=== PATIENT | female | born 1975 | race Caucasian/White ===

== ENCOUNTER 2022-03-12 21:13 | Emergency (ER) | payer MEDICAID ==
[~2022-03-12] VITALS: Ht 157.5 cm; Wt 73.0 kg
[2022-03-12 22:01] VITALS: BP 132/80
[2022-03-12] MEDS ORDERED: HYDR25SU33 RC (22:41)
== END 2022-03-12 23:09 | disposition home or self-care (01) ==
LOC: ER 21:16
DX: K64.4 Residual hemorrhoidal skin tags (principal)

== ENCOUNTER 2022-04-23 19:29 | Emergency (ER) | payer MEDICAID ==
[~2022-04-23] VITALS: Ht 157.5 cm; Wt 69.4 kg
[~2022-04-23 19:29] MED LIST: HYDR25SU33 RC
--- NOTE | 2022-04-23 20:06 | NUR ---
PT BIBSELF C/O LOWER ABD PAIN AND LEFT LOWER ABD PAIN THAT RADIATES TO LEFT THIGH X 1 WEEK. PT ALSO REPORTS FEELING A MASS IN HER VAGINA WHEN SHE WIPES HERSELF. PT DENIES TAKING MEDICATIONS FOR PAIN. PT AAOX4 BREATHING EVENLY AND UNLABORED.
[2022-04-23] MEDS ORDERED: KETOROLAC TROMETHAMINE INJ 30 MG/ML VIAL IM ONE (20:30)
--- NOTE | 2022-04-23 20:32 | NUR ---
US TECH AT PT'S BEDSIDE
--- NOTE | 2022-04-23 20:34 | NUR ---
PROVIDED PT WITH URINE CUP; AWAITING FOR URINE SAMPLE.
[2022-04-23 20:35] LABS: BASOPHILS # (AUTO) 0.1 K/uL (0.0-0.2); BASOPHILS % (AUTO) 0.6 % (0.0-2.0); EOSINOPHILS % (AUTO) 0.3 % (0.0-6.0); HEMATOCRIT 23 % (33-45); HEMOGLOBIN 7.5 g/dL (11.5-14.8); LYMPHOCYTES # (AUTO) 1.9 K/uL (0.8-4.8); LYMPHOCYTES % (AUTO) 18.7 % (20.0-44.0); MEAN CORPUSCULAR HGB CONC 32 g/dl (31.0-36.0); MEAN CORPUSCULAR VOLUME 56 fL (82-100); MONOCYTES % (AUTO) 10.3 % (2.0-12.0); NEUTROPHILS % (AUTO) 70.1 % (43.0-81.0); PLATELET COUNT (AUTO) 338 K/uL (150-450); RED BLOOD CELL COUNT(AUTO) 4.11 MIL/uL (4.0-5.2); WHITE BLOOD COUNT (AUTO) 9.9 K/uL (4.3-11.0)
[2022-04-23] MEDS ORDERED: KETOROLAC TROMETHAMINE INJ 30 MG/ML VIAL ONE (20:39)
[2022-04-23 20:53] LABS: CREATININE 0.8 mg/dL (0.6-1.3); POTASSIUM 4.2 mmol/L (3.5-5.1)
--- NOTE | 2022-04-23 20:58 | NUR ---
URINE COLLECTED AND SENT TO LAB
[2022-04-23 21:43] LABS: BILIRUBIN,URINE NEGATIVE (NEGATIVE); COLOR,URINE YELLOW (YELLOW); LEUKOCYTE ESTERASE ,URINE 2+ (NEGATIVE); NITRITE, URINE NEGATIVE (NEGATIVE); PH,URINE 5.5 (5.0-8.0); PROTEIN,URINE NEGATIVE (NEGATIVE); UGLUCOSE NEGATIVE (NEGATIVE); UROBILINOGEN,URINE 0.2 EU/dL (0.2)
[2022-04-23 21:48] LABS: BAND % (MANUAL) 1 % (0.0-5.0); LYMPHOCYTES % (MANUAL) 18 % (16-48); MONOCYTES % (MANUAL) 7 % (0-11.0); NEUTROPHILS % (MANUAL) 74 (42-76)
[2022-04-23 22:10] LABS: BACTERIA,URINE Moderate /HPF (None Seen); SQUAMOUS EPITHELIAL CELL,UR Few /HPF (None Seen)
[2022-04-23] MEDS ORDERED: IBUP-1953 PO (22:41)
[2022-04-23] MEDS ORDERED: FERR325T23 PO (22:41)
[2022-04-23] MEDS ORDERED: CEPH500C2 PO (22:41)
--- NOTE | 2022-04-23 22:47 | NUR ---
Patient discharged to home in stable condition. Written and verbal after care instructions given. Patient verbalizes understanding of instruction. Pt ambulatory with a steady gait
[2022-04-23 22:57] VITALS: BP 106/69
== END 2022-04-23 22:47 | disposition home or self-care (01) ==
LOC: ER 19:32
DX: N93.8 Other specified abnormal uterine and vaginal bleeding (principal); D64.9 Anemia, unspecified; D25.9 Leiomyoma of uterus, unspecified; N39.0 Urinary tract infection, site not specified; Z79.899 Other long term (current) drug therapy
CPT/HCPCS: 99285; 76856; 96372; 85025; 80048; 87086; 84703; 81001; 36415; 82962; 85007; J1885

== ENCOUNTER 2022-06-05 08:31 | Inpatient (IN) | payer MEDICAID ==
[~2022-06-05] VITALS: Ht 160 cm; Wt 71.7 kg
[~2022-06-05 08:31] MED LIST changes: +CEPH500C2 PO; +FERR325T23 PO; +IBUP-1953 PO
--- NOTE | 2022-06-05 08:40 | NUR ---
TO ER BED 16. BIB C/O LOWER ABDOMINAL PAIN AND VAGINAL BLEEDING AND CLOTS SINCE YESTERDAY. PT HAS HX OF ANEMIA AND ALSO DIAGNOSED WITH FIBROIDS LAST MONITOR. STATED THAT SHE HAS BEEN FEELING WEAK SINCE YESTERDAY. WARM BLANKET PROVIDED FOR COMFORT. ATTACHED TO MONITOR, HR ELEVATED, AWARE.
--- NOTE | 2022-06-05 08:41 | NUR ---
PT UNABLE TO PROVIDE URINE SAMPLE AT THIS TIME, PROVIDED WITH SAMPLE CUP.
--- NOTE | 2022-06-05 08:43 | NUR ---
DR MITCHELL AT BEDSIDE FOR EVAL
--- NOTE | 2022-06-05 08:44 | NUR ---
IV ESTABLISHED R AC 20G. LABS DRAWN AND COLLECTED AT BEDSIDE.
[2022-06-05 09:07] LABS: BASOPHILS # (AUTO) 0.1 K/uL (0.0-0.2); BASOPHILS % (AUTO) 0.3 % (0.0-2.0); EOSINOPHILS % (AUTO) 0.1 % (0.0-6.0); HEMATOCRIT 23 % (33-45); LYMPHOCYTES # (AUTO) 1.7 K/uL (0.8-4.8); LYMPHOCYTES % (AUTO) 9.9 % (20.0-44.0); MEAN CORPUSCULAR HGB CONC 29 g/dl (31.0-36.0); MEAN CORPUSCULAR VOLUME 68 fL (82-100); MONOCYTES # (AUTO) 0.5 K/uL (0.1-1.30); MONOCYTES % (AUTO) 2.9 % (2.0-12.0); NEUTROPHILS # (AUTO) 14.7 K/uL (1.8-8.9); NEUTROPHILS % (AUTO) 86.8 % (43.0-81.0); PLATELET COUNT (AUTO) 479 K/uL (150-450); RED BLOOD CELL COUNT(AUTO) 3.42 MIL/uL (4.0-5.2); WHITE BLOOD COUNT (AUTO) 16.9 K/uL (4.3-11.0)
[2022-06-05 09:09] LABS: HEMOGLOBIN 6.7 g/dL (11.5-14.8)
--- NOTE | 2022-06-05 09:15 | NUR ---
PAGED DR. FERRER
[2022-06-05] MEDS ORDERED: MEGESTROL ACETATE 40 MG TABLET PO STA (09:17)
[2022-06-05] MEDS ORDERED: MEGESTROL ACETATE 40 MG TABLET ONE (09:21)
--- NOTE | 2022-06-05 09:28 | NUR ---
BLOOD CONSENT SIGNED AND PLACE IN PT'S CHART
[2022-06-05] MEDS ORDERED: IV NS 0.9% 1,000 ML IV ONE (09:30)
[2022-06-05 09:38] LABS: ALBUMIN 2.9 g/dL (3.4-5.0); BILIRUBIN,DIRECT 0.1 mg/dL (0.0-0.2); BILIRUBIN,TOTAL 0.2 mg/dL (0.2-1.0); CALCIUM, SERUM 9.5 mg/dL (8.5-10.1); CREATININE 1.4 mg/dL (0.6-1.3); POTASSIUM 4.3 mmol/L (3.5-5.1)
[2022-06-05 09:44] LABS: BILIRUBIN,URINE NEGATIVE (NEGATIVE); COLOR,URINE RED (YELLOW); LEUKOCYTE ESTERASE ,URINE TRACE (NEGATIVE); NITRITE, URINE NEGATIVE (NEGATIVE); PH,URINE 7.5 (5.0-8.0); PROTEIN,URINE 3+ mg/dl (NEGATIVE); UGLUCOSE TRACE mg/dL (NEGATIVE); UROBILINOGEN,URINE 0.2 EU/dL (0.2)
--- NOTE | 2022-06-05 09:48 | NUR ---
COVID TEST COLLECTED AND SENT
--- NOTE | 2022-06-05 10:03 | NUR ---
BED GIVEN 120-2
[2022-06-05] MEDS ORDERED: ONDANSETRON HCL/PF 4 MG/2 ML VIAL ONE (10:06)
[2022-06-05] MEDS ORDERED: MORPHINE SULFATE INJ 2 MG/ML DISP.SYRIN ONE (10:07)
[2022-06-05] MEDS: ONDANSETRON HCL/PF 4 MG/2 ML VIAL IVP PRN ×2 (10:10→21:09)
[2022-06-05] MEDS: MORPHINE SULFATE INJ 2 MG/ML DISP.SYRIN IV PRN ×2 (10:10→21:10)
[2022-06-05 10:18] LABS: BACTERIA,URINE Rare /HPF (None Seen); RBC,URINE TOO NUMEROUS TO COUN /HPF (0-2); SQUAMOUS EPITHELIAL CELL,UR Few /HPF (None Seen)
[2022-06-05] MEDS ORDERED: CEFTRIAXONE 1GM BAG (ER ONLY) 50 ML IV ONE ×2 (10:22→10:30)
--- NOTE | 2022-06-05 10:54 | NUR ---
REPORT GIVEN TO HOSSEIN FOR JOSEPH
--- NOTE | 2022-06-05 10:55 | NUR ---
rocephin started at 1025 and ended at 1055. pt tolerated well.
[2022-06-05] MEDS ORDERED: DEXTROSE 50%-WATER 50 ML DISP.SYRIN IV PRN (11:00)
[2022-06-05] MEDS: FERROUS SULFATE (325 MG) 325 MG/TAB TABLET PO SCH ×3 (11:00→18:21)
[2022-06-05] MEDS ORDERED: INSULIN REGULAR, HUMAN 100 UNIT/ML 3 ML VIAL SQ PRN (11:00)
--- NOTE | 2022-06-05 11:23 | NUR ---
pt transport to tele with acls protocols in place
--- NOTE | 2022-06-05 11:45 | NUR ---
RN NOTES PATIENT RECEIVED FROM ER WITH ABDOMINAL PAIN AND VAGINAL BLEEDING. POSSIBLE UTI.
[2022-06-05] MEDS ORDERED: BLOOD SUGAR DIAGNOSTIC 1 EACH STRIP IN SCH (12:00)
[2022-06-05 12:01] VITALS: BP 117/76
[2022-06-05 12:24] VITALS: BP 108/72
--- NOTE | 2022-06-05 12:24 | NUR ---
RN NOTES PRBC TRANSFUSION STARTED FOR HG 6.1.
--- NOTE | 2022-06-05 13:00 | NUR ---
RN NOTE 1100 FERROUS SULFATE TABLET NOT ADMIN PATIENT WAS ADMITTED TO UNIT PAST ADMIN DATE NEXT DOSE. 1300 DOSE ADMIN ON TIME AWARE
[2022-06-05 13:24] VITALS: BP 106/86
[2022-06-05 13:36] LABS: BASOPHILS % (MANUAL) 0 % (0.0-2.0); EOSINOPHILS % (MANUAL) 0 % (0-4); LYMPHOCYTES % (MANUAL) 11 % (16-48); MONOCYTES % (MANUAL) 2 % (0-11.0); NEUTROPHILS % (MANUAL) 87 (42-76)
[2022-06-05] MEDS: IV NS 0.9% 1,000 ML IV SCH ×2 (15:21→21:12)
[2022-06-05 16:00] VITALS: BP 100/59
--- NOTE | 2022-06-05 16:29 | NUR ---
RN NOTE PER DR PINA,KENNY DO OKAY TO DC BLOOD GLUCOSE, COVERAGE PATIENTS A1C IS 5.0 - ORDERS FOLLOWED
[2022-06-05 17:40] LABS: BASOPHILS % (AUTO) 0.1 % (0.0-2.0); HEMATOCRIT 24 % (33-45); HEMOGLOBIN 7.2 g/dL (11.5-14.8); LYMPHOCYTES # (AUTO) 1.2 K/uL (0.8-4.8); LYMPHOCYTES % (AUTO) 8.9 % (20.0-44.0); MEAN CORPUSCULAR HGB CONC 30 g/dl (31.0-36.0); MEAN CORPUSCULAR VOLUME 68 fL (82-100); MONOCYTES # (AUTO) 1.4 K/uL (0.1-1.30); NEUTROPHILS # (AUTO) 11.4 K/uL (1.8-8.9); PLATELET COUNT (AUTO) 335 K/uL (150-450); RED BLOOD CELL COUNT(AUTO) 3.55 MIL/uL (4.0-5.2); WHITE BLOOD COUNT (AUTO) 14.1 K/uL (4.3-11.0)
[2022-06-05 17:52] LABS: IRON, SERUM 148 ug/dl (50-175); TOTAL IRON BINDING CAPACITY 254 ug/dl (250-450)
[2022-06-05 18:14] LABS: FERRITIN 39 ng/mL (8-388)
[2022-06-05 18:36] LABS: LYMPHOCYTES % (MANUAL) 9 % (16-48); MONOCYTES % (MANUAL) 6 % (0-11.0); NEUTROPHILS % (MANUAL) 85 (42-76)
--- NOTE | 2022-06-05 19:01 | NUR ---
RN CLOSING NOTES PATIENT IN BED AWAKE, ALERT AND ORIENTED X 4. ON ROOM AIR, BREATHING EVEN AND NON LABORED, NO SOB, NO SIGNS OF DISTRESS. RAC 20G PATENT AND FLUSHING WELL WITH NS RUNNING AT 75 ML/HR. NO COMPLAINTS OF PAIN AT THIS TIME. PATIENT AWARE OF NPO STATUS AFTER MIDNIGHT. SAFETY PRECAUTIONS IN PLACE, BED IN LOWEST POSITION, SIDE RAILS UP X 2, CALL LIGHT WITHIN REACH. WILL ENDORSE TO ONCOMING SHIFT FOR JOSEPH.
--- NOTE | 2022-06-05 19:05 | NUR ---
Pt is noted in bed alert, responsive with call light in reach and fall precaution sin place as report is received from the off going nurse. Sinus Trachy on the Tele monitor , Room Air, skin dry, warm, and intact. Pt care continue as she will be monitor closely with H/H now 7.224 as she is S/P 1unit off PRBC WITH IVF 0.9NS AT 75ML/HR. Pt will be NPO after Midnight for CT off the Chest, Abdominal and Pelvis in AM with consent signed and in chart.
[2022-06-05 20:00] VITALS: BP 98/67
[2022-06-06] VITALS (15 sets, daily range): BP systolic 90–113; BP diastolic 49–68
--- NOTE | 2022-06-06 00:20 | NUR ---
Pt is now NPO as ordered for CT Chest, Abdoman and Pelvis with IVP therapy 0.9NS at 75ML/HR . Pt care continue as she is been monitor closely due to Active Bleeding while assisted as needed and pain management in progress.
[2022-06-06] MEDS: MORPHINE SULFATE INJ 2 MG/ML DISP.SYRIN IV PRN (04:24)
[2022-06-06] MEDS: ONDANSETRON HCL/PF 4 MG/2 ML VIAL IVP PRN (04:24)
--- NOTE | 2022-06-06 04:32 | NUR ---
Pt care continue as pt received Morphine 2mg IVP for pain 8/10 and Zofran 4mg for N/Vomiting . Pt care continue as she is been assisted with AM care as she remain NPO for CT CHEST, Abdominal and Pelvis.
[2022-06-06 04:36] LABS: BASOPHILS % (AUTO) 0.3 % (0.0-2.0); LYMPHOCYTES % (AUTO) 6.4 % (20.0-44.0); MEAN CORPUSCULAR HGB CONC 30 g/dl (31.0-36.0); MEAN CORPUSCULAR VOLUME 70 fL (82-100); MONOCYTES % (AUTO) 6.4 % (2.0-12.0); NEUTROPHILS # (AUTO) 13.7 K/uL (1.8-8.9); NEUTROPHILS % (AUTO) 86.9 % (43.0-81.0); PLATELET COUNT (AUTO) 325 K/uL (150-450); RED BLOOD CELL COUNT(AUTO) 2.73 MIL/uL (4.0-5.2); WHITE BLOOD COUNT (AUTO) 15.7 K/uL (4.3-11.0)
[2022-06-06 04:43] LABS: HEMATOCRIT 19 % (33-45); HEMOGLOBIN 5.7 g/dL (11.5-14.8)
[2022-06-06 04:49] LABS: ALBUMIN 2.4 g/dL (3.4-5.0); BILIRUBIN,TOTAL 0.2 mg/dL (0.2-1.0); CALCIUM, SERUM 8.6 mg/dL (8.5-10.1); CREATININE 0.8 mg/dL (0.6-1.3); MAGNESIUM 1.9 mg/dL (1.8-2.4); PHOSPHORUS 4.4 mg/dL (2.5-4.9); POTASSIUM 4.4 mmol/L (3.5-5.1); TOTAL PROTEIN, SERUM 5.7 g/dL (6.4-8.2)
--- NOTE | 2022-06-06 04:55 | NUR ---
0455 critical hgb 5.7 [address] Fishman with order to transfuse one unit given. Order noted.
[2022-06-06 07:07] LABS: IMMUNOGLOBULIN A, SERUM 90 mg/dL (87-352); IMMUNOGLOBULIN G, SERUM 878 mg/dL (586-1602); IMMUNOGLOBULIN M, SERUM 57 mg/dL (26-217)
--- NOTE | 2022-06-06 07:32 | NUR ---
Pt care continue as report is given to the AM receiving nurse.
--- NOTE | 2022-06-06 07:51 | NUR ---
RN OPENING NOTE PATIENT AWAKE IN BED RESTING, A/O X4. NO S/S OF PAIN NOTED AT THIS TIME. ON ROOM AIR, BREATHING EVEN UNLABORED, NO DISTRESS OR SHORTNESS OF BREATH NOTED. IV ACCESS RAC 20G, INTACT, PATENT AND FLUSHING WELL. PATIENT WITH EXTERNAL MIDDLE SCHOOL TECHNOLOGY TEACHER WITH CURRENT READING OF ST AND HR OF 110, NO CARDIAC DISTRESS NOTED. FALL AND SAFETY MEASURES IN PLACE, BED ALARM ON, BED IN LOW AND LOCK POSITION, CALL LIGHT AND TABLE WITHIN EASY REACH, SIDE RAILS UP X2. WILL CONTINUE TO MONITOR.
[2022-06-06] MEDS: FERROUS SULFATE (325 MG) 325 MG/TAB TABLET PO SCH ×3 (08:12→17:12)
[2022-06-06] MEDS: CEFTRIAXONE 1 G in IV D5W 50 ML IV SCH (08:24)
[2022-06-06] MEDS: MEGESTROL ACETATE 40 MG TABLET PO SCH (09:30)
[2022-06-06 12:12] LABS: NEUTROPHILS % (MANUAL) 89 (42-76)
[2022-06-06 12:13] LABS: BASOPHILS % (MANUAL) 0 % (0.0-2.0); EOSINOPHILS % (MANUAL) 0 % (0-4); LYMPHOCYTES % (MANUAL) 7 % (16-48); MONOCYTES % (MANUAL) 4 % (0-11.0)
[2022-06-06] MEDS: IV NS 0.9% 1,000 ML IV SCH (12:28)
--- NOTE | 2022-06-06 14:00 | NUR ---
RN NOTE CALLED CT TO FOLLOW UP ON PATIENT SCHEDULE FOR CT OF C/A/P. PER DOCTOR JESSICA PATIENT CAN HAVE THE CT DONE TODAY. CT DID NOT ANSWER THE PHONE, MULTIPLE ATTEMPTS (X4) WERE MADE, WILL FOLLOW UP. CHARGE NURSE AWARE.
[2022-06-06 14:07] LABS: *SPE A/G RATIO 0.9 (0.7-1.7); *SPE ALPHA-1-GLOBULIN 0.4 g/dL (0.0-0.4); *SPE ALPHA-2-GLOBULIN 0.8 g/dL (0.4-1.0); *SPE BETA GLOBULIN 0.9 g/dL (0.7-1.3); *SPE M-SPIKE Not Observed g/dL (Not Observed)
--- NOTE | 2022-06-06 15:40 | NUR ---
RN NOTE PATIENT RECEIVED ONE UNIT OF PRBC TODAY, PATIENT TOLERATED THE TRANSFUSION WELL, NO REACTIONS. PATIENT IS IN ROOM RESTING CONFORMABLY, WILL CONTINUE TO MONITOR.
--- NOTE | 2022-06-06 16:35 | NUR ---
RN NOTE PATIENT NEED ONE MORE UNIT OF PRBC, CALLED BLOOD BANK X2, BUT BLOOD IS NOT READY. WILL FOLLOW UP.
--- NOTE | 2022-06-06 18:55 | NUR ---
RN CLOSING NOTE PATIENT AWAKE IN BED RESTING, A/O X4. NO S/S OF PAIN NOTED AT THIS TIME. ON ROOM AIR, BREATHING EVEN UNLABORED, NO DISTRESS OR SHORTNESS OF BREATH NOTED. IV ACCESS RAC 20G, L HAND #20G, INTACT, PATENT AND FLUSHING WELL. PATIENT WITH EXTERNAL SENIOR STORAGE ADMINISTRATOR WITH CURRENT READING OF ST AND HR OF 102, NO CARDIAC DISTRESS NOTED. FALL AND SAFETY MEASURES IN PLACE, BED ALARM ON, BED IN LOW AND LOCK POSITION, CALL LIGHT AND TABLE WITHIN EASY REACH, SIDE RAILS UP X2. ALL NEEDS ATTENDED AND ANTICIPATED. PATIENT IS RECEIVING ONE UNIT OF PRBC AT THE MOMENT, STARTED AT 1815, NO REACTION, TOLERATING WELL. WILL ENDORSE TO QC SCIENTIST NURSE.
[2022-06-06] MEDS: ACETAMINOPHEN 325 MG TABLET PO PRN (19:04)
--- NOTE | 2022-06-06 20:37 | NUR ---
PECAN GROWER OPENING NOTES: RECEIVED PATIENT AWAKE IN BED, BED IN LOW POSITION CALL LIGHTS WITHIN REACH, NO COMPLAIN OF PAIN AND DISCOMFORT AT THIS TIME, ON ROOM AIR SATURATING WELL, PATIENT IS A/O X4 ALBANIAN SPEAKING ABLE TO MAKE NEEDS KNOWN, WITH ONGOING BLOOD TRANSFUSION OF 1PRBC 2ND BAG STARTED AT 1819, PATIENT APPEARS CALM NNO SOB OR ANY TRANSFUSION REACTION WAS OBSERVED, PATIENT HAS TEMP EARLIER PER AM NURSE GUZMAN MOBLEY WAS AWARE, TYLENOL 650 MG WAS GIVEN ONGOING MONITORING, PATIENT ON TELE MONITOR SR-99 TO ST-102, PATIENT KEPT CLEAN AND DRY ALL NEEDS MET WILL CONTINUE TO MONITOR.
--- NOTE | 2022-06-06 21:33 | NUR ---
RN NOTES: BLOOD TRANSFUSION OF 2ND BAG OF PRBC DONE AT 2114 NO TRANSFUSION REACTION WAS OBSERVED, PATIENT REMAINS FEBRILE AT 100.4 PER AM CN PRODUCT SALES REPRESENTATIVE ITZ WAS AWARE ABOUT PATIENT FEVERISH DURING BLOOD TRANSFUSION, TYLENOL 650 MG PO GIVEN AT 1800, TEPID SPONGE GIVEN, ICE PACK GIVEN , FOR BLOOD DRAWN 1 HOUR POST BT, WILL CONTINUE TO MONITOR.
[2022-06-06 23:42] LABS: BASOPHILS % (AUTO) 0.2 % (0.0-2.0); HEMATOCRIT 24 % (33-45); HEMOGLOBIN 7.4 g/dL (11.5-14.8); LYMPHOCYTES # (AUTO) 1.4 K/uL (0.8-4.8); LYMPHOCYTES % (AUTO) 7.2 % (20.0-44.0); MEAN CORPUSCULAR HGB CONC 31 g/dl (31.0-36.0); MEAN CORPUSCULAR VOLUME 76 fL (82-100); MONOCYTES % (AUTO) 10.1 % (2.0-12.0); NEUTROPHILS # (AUTO) 16.4 K/uL (1.8-8.9); NEUTROPHILS % (AUTO) 82.5 % (43.0-81.0); PLATELET COUNT (AUTO) 241 K/uL (150-450); RED BLOOD CELL COUNT(AUTO) 3.08 MIL/uL (4.0-5.2); WHITE BLOOD COUNT (AUTO) 19.8 K/uL (4.3-11.0)
[2022-06-07] VITALS (14 sets, daily range): BP systolic 85–97; BP diastolic 47–61
[2022-06-07 00:12] LABS: D-DIMER 0.53 mg/L(FEU (0.17-0.50)
[2022-06-07 01:06] LABS: CANCER AG, 125 30.6 U/mL (0.0-38.1); CANCER AG, 15-3 12.7 U/mL (0.0-25.0)
[2022-06-07] MEDS: IV NS 0.9% 1,000 ML IV SCH ×2 (02:56→14:50)
[2022-06-07 04:46] LABS: HEMOGLOBIN 7.2 g/dL (11.5-14.8)
--- NOTE | 2022-06-07 06:51 | NUR ---
APARTMENT HOUSE MANAGER CLOSING NOTES: PATIENT SLEEP IN BED COMFORTABLY, BED IN LOW POSITION CALL LIGHTS WITHIN REACH, NO COMPLAIN OF PAIN AND DISCOMFORT AT THIS TIME, ON ROOM AIR SATURATING WELL, PATIENT IS A/OX4 ABLE TO MAKE NEEDS KNOWN. AMBULATORY TO BED SIDE COMMODE, PATIENT IS S/P BLOOD TRANSFUSION, ON MONITORING FOR BLEEDING, NO BLEEDING WAS OBSERVED, PATIENT ON TELE MONITOR- ST-104 NO SYMPTOS WAS OBSERVED, ON NPO PRIOR TO CT SCAN WITH CONTRAST AND MRI PATIENT KEPT CLEAN AND DRY ALL NEEDS MET ENDORSE TO INCOMING SHIFT.
[2022-06-07 07:25] LABS: CALCIUM, SERUM 8.7 mg/dL (8.5-10.1); CREATININE 0.6 mg/dL (0.6-1.3); POTASSIUM 3.7 mmol/L (3.5-5.1)
--- NOTE | 2022-06-07 07:51 | NUR ---
DRAFT ROLLER PICKER OPENING NOTES: PATIENT IN BED AWAKE, CALL LIGHTS WITHIN REACH, NO COMPLAIN OF PAIN AND DISCOMFORT AT THIS TIME, ON ROOM AIR SATURATING WELL, PATIENT IS A/OX4 ABLE TO MAKE NEEDS KNOWN. AMBULATORY TO BED SIDE COMMODE, PATIENT IS S/P BLOOD TRANSFUSION, ON MONITORING FOR BLEEDING, NO BLEEDING WAS OBSERVED, PATIENT ON TELE MONITOR. PATIENT ON NPO FOR MRI WITH CONTRAST. SAFETY MEASURES IN PLACED. PLAN OF CARE CONTINUE.
[2022-06-07] MEDS: CEFTRIAXONE 1 G in IV D5W 50 ML IV SCH (08:45)
[2022-06-07] MEDS: FERROUS SULFATE (325 MG) 325 MG/TAB TABLET PO SCH ×3 (08:45→16:59)
[2022-06-07] MEDS: ACETAMINOPHEN 325 MG TABLET PO PRN ×2 (08:45→20:15)
[2022-06-07] MEDS: MEGESTROL ACETATE 40 MG TABLET PO SCH (08:45)
[2022-06-07 08:49] LABS: BASOPHILS % (AUTO) 0.1 % (0.0-2.0); EOSINOPHILS % (AUTO) 0.1 % (0.0-6.0); HEMATOCRIT 22 % (33-45); HEMOGLOBIN 7.1 g/dL (11.5-14.8); LYMPHOCYTES # (AUTO) 1.3 K/uL (0.8-4.8); LYMPHOCYTES % (AUTO) 6.3 % (20.0-44.0); MEAN CORPUSCULAR HGB CONC 32 g/dl (31.0-36.0); MEAN CORPUSCULAR VOLUME 76 fL (82-100); MONOCYTES # (AUTO) 1.9 K/uL (0.1-1.30); MONOCYTES % (AUTO) 9.4 % (2.0-12.0); NEUTROPHILS # (AUTO) 16.7 K/uL (1.8-8.9); NEUTROPHILS % (AUTO) 84.1 % (43.0-81.0); PLATELET COUNT (AUTO) 204 K/uL (150-450); RED BLOOD CELL COUNT(AUTO) 2.92 MIL/uL (4.0-5.2); WHITE BLOOD COUNT (AUTO) 19.9 K/uL (4.3-11.0)
[2022-06-07] MEDS ORDERED: LORAZEPAM INJ 2 MG/ML VIAL IV ONE (09:00)
[2022-06-07 09:14] LABS: ALBUMIN 1.9 g/dL (3.4-5.0); BILIRUBIN,DIRECT 0.1 mg/dL (0.0-0.2); BILIRUBIN,TOTAL 0.3 mg/dL (0.2-1.0); TOTAL PROTEIN, SERUM 5.3 g/dL (6.4-8.2)
--- NOTE | 2022-06-07 09:40 | NUR ---
PATIENT IS TAKEN TO MRI
--- NOTE | 2022-06-07 10:35 | NUR ---
PATIENT BACK FROM MRI, DR. LOPEZ AT THE BEDSIDE, PER DR. LOPEZ RESUME REGULAR DIET. NOTED AND CARRIED OUT. PLAN OF CARE CONTINUE.
--- NOTE | 2022-06-07 11:08 | NUR ---
CLARIFY ORDER TO DR. LOPEZ ABOUT THE CT SCAN, PER DR. LOPEZ TO DO CT SCAN, NOTED AND CARRIED OUT, CALLED CT DEPARTMENT, PER CT PERSONNEL THEY DON'T HAVE CT EMPLOYEE TODAY, SO THEY DON'T KNOW WHEN THEY WILL DO IT, INFORMED CHARGE NURSE
[2022-06-07 12:22] LABS: HEMOGLOBIN 6.6 g/dL (11.5-14.8)
--- NOTE | 2022-06-07 12:50 | NUR ---
MRI RESULTS RECEIVED INFORMED DR. DAVISON AND DR. LOPEZ
[2022-06-07] MEDS ORDERED: IV NS 0.9% 250 ML IV ONE (14:05)
[2022-06-07] MEDS ORDERED: IOHEXOL-300 100 ML VIAL IV ONE (14:05)
--- NOTE | 2022-06-07 14:18 | NUR ---
PATIENT WENT TO CT.
--- NOTE | 2022-06-07 14:55 | NUR ---
PATIENT BACK FROM CT
--- NOTE | 2022-06-07 16:55 | NUR ---
STARTED TRANFUSING 1 PACK RBC, CHECKED VS PER PROTOCOL
--- NOTE | 2022-06-07 17:00 | NUR ---
NOTED BLOOD PRESSURE DURING BLOOD TRANSFUSION IS 82/41HR 103 T 98.9 02 SAT 94% RA, MANUAL 87/48, INFORMED DR. LOPEZ WITH NEW ORDER TO GIVE NS 1L BOLUS AFTER BLOOD TRANSFUSION AND MIDODRINE 10MG X1 NOW. NOTED AND CARRIED OUT. PLAN OF CARE CONTINUE.
[2022-06-07] MEDS ORDERED: MIDODRINE HCL (5MG) 5 MG TABLET PO ONE (17:30)
--- NOTE | 2022-06-07 17:46 | NUR ---
MIDODRINE GIVEN, RECHECKED BP 97/61 HR 102
[2022-06-07] MEDS ORDERED: IV NS 0.9% 1,000 ML IV ONE (18:00)
--- NOTE | 2022-06-07 18:24 | NUR ---
BLOOD TRANSFUSION IS DONE, PATIENT TOLERATED.
--- NOTE | 2022-06-07 19:00 | NUR ---
BILLIARD TABLE MECHANIC CLOSING NOTES: PATIENT IN BED AWAKE, CALL LIGHTS WITHIN REACH, NO COMPLAIN OF PAIN AND DISCOMFORT AT THIS TIME, ON ROOM AIR SATURATING WELL, PATIENT IS A/OX4 ABLE TO MAKE NEEDS KNOWN. FAMILY AT THE BEDSIDE, AMBULATORY TO BED SIDE COMMODE, PATIENT IS S/P BLOOD TRANSFUSION, ON MONITORING FOR BLEEDING. LEFT HAND PIV AND LEFT UA MIDLINE NOTED PATENT AND INTACT, FLUSHES WELL, WITH IV ABX RUNNING ORDERED. PATIENT ON TELE MONITOR ST 103. SAFETY MEASURES IN PLACED. CALL LIGHT WITHIN REACH. ENDORSED TO NIGHT NURSE FOR JOSEPH.
[2022-06-07] MEDS: ZOSYN IVPB 3.375 G in IV D5W 50ml IV SCH ×2 (19:13→23:51)
--- NOTE | 2022-06-07 19:20 | NUR ---
DRILL PRESSER OPENING NOTES - RECEIVED PATIENT RESTING, HOB IN SEMI-SHI'S. FAMILY PRESENT IN ROOM. A/O X4, ESTONIAN SPEAKING. BREATHING EVEN AND NON-LABORED ON ROOM AIR. NOT IN APPARENT DISTRESS. DENIES PAIN AT THIS TIME. ON TELE MONITOR READING SINUS TACHYCARDIA AT 105 BPM. HAS LEFT HAND IV ACCESS #20G, SALINE LOCKED AND LEFT UPPER ARM MIDLINE #18G WITH NS RUNNING AT 75 ML/HR. NO S/S OF INFILTRATION NOTED. SAFETY PRECAUTIONS IN PLACE: BED LOCKED AND IN LOW POSITION, SIDE RAILS UP X2, CALL LIGHT WITHIN REACH. WILL CONTINUE PLAN OF CARE.
--- NOTE | 2022-06-07 20:10 | NUR ---
C/O CHEST PAIN WHEN COUGHING AND TEMP OF 100.9. PER PT, SHE GOT RAINED ON WHEN SHE WAS BROUGHT FOR MRI. BILATERAL POSTERIOR EXPIRATORY WHEEZING HEARD ON AUSCULTATION, SPO2 OF 89-91%. NOTIFIED DR. CHAVEZ AND ORDERED ALBUTEROL HFN Q4H PRN. NOTED AND CARRIED OUT.
[2022-06-07 20:14] LABS: HEMOGLOBIN 7.6 g/dL (11.5-14.8)
--- NOTE | 2022-06-07 20:45 | NUR ---
PATIENT PLACED ON O2 AT 2LPM VIA NASAL CANULA AFTER BREATHING TX. NO C/O SOB OR .
[2022-06-07] MEDS: ALBUTEROL FS 2.5 MG/0.5 ML VIAL.NEB NEB PRN (20:58)
--- NOTE | 2022-06-07 22:01 | NUR ---
NOTIFIED DR. CHAVEZ OF BP 85/52 AND 86/47. ORDERED NS 500 ML BOLUS, REPEAT H/H STAT AND MIDODRINE 10MG TID PRN FOR SBP <100. NOTED AND CARRIED OUT. Addendum: 06/07/22 at 2247 by August MICHI DOMINGUEZ RECHECKED BP 89/49 Addendum: 06/08/22 at 0047 by August MICHI DOMINGUEZ BP 83/46 @2349 AFTER GIVING NS 500ML BOLUS, GIVING MIDODRINE 10MG AND IV ABX. NOTIFIED DR. CHAVEZ AND ORDERED 1 UNIT PRBC. NOTED AND CARRIED OUT.
[2022-06-07] MEDS ORDERED: IV NS 0.9% 500 ML IV ONE (23:00)
[2022-06-07 23:26] LABS: HEMOGLOBIN 7.1 g/dL (11.5-14.8)
[2022-06-07] MEDS: MIDODRINE HCL (5MG) 5 MG TABLET PO PRN (23:50)
[2022-06-08] VITALS (9 sets, daily range): BP systolic 82–105; BP diastolic 45–67
[2022-06-08] MEDS: IV NS 0.9% 1,000 ML IV SCH ×2 (01:24→16:50)
[2022-06-08] MEDS: ACETAMINOPHEN 325 MG TABLET PO PRN ×2 (04:42→21:49)
--- NOTE | 2022-06-08 05:13 | NUR ---
PER CN, NO NEED FOR SEPSIS PROTOCOL.
--- NOTE | 2022-06-08 05:30 | NUR ---
BT COMPLETED. NO ASE NOTED. NO C/O PAIN, DIZZINESS, N/V. WILL CONTINUE TO MONITOR.
[2022-06-08] MEDS: ZOSYN IVPB 3.375 G in IV D5W 50ml IV SCH ×4 (05:45→23:08)
[2022-06-08 06:20] LABS: BASOPHILS % (AUTO) 0.2 % (0.0-2.0); EOSINOPHILS % (AUTO) 0.5 % (0.0-6.0); HEMATOCRIT 28 % (33-45); HEMOGLOBIN 8.8 g/dL (11.5-14.8); LYMPHOCYTES % (AUTO) 6.8 % (20.0-44.0); MEAN CORPUSCULAR HGB CONC 32 g/dl (31.0-36.0); MEAN CORPUSCULAR VOLUME 81 fL (82-100); MONOCYTES # (AUTO) 1.5 K/uL (0.1-1.30); MONOCYTES % (AUTO) 9.9 % (2.0-12.0); NEUTROPHILS # (AUTO) 12.6 K/uL (1.8-8.9); NEUTROPHILS % (AUTO) 82.6 % (43.0-81.0); PLATELET COUNT (AUTO) 213 K/uL (150-450); RED BLOOD CELL COUNT(AUTO) 3.41 MIL/uL (4.0-5.2); WHITE BLOOD COUNT (AUTO) 15.3 K/uL (4.3-11.0)
[2022-06-08 06:42] LABS: ALBUMIN 1.6 g/dL (3.4-5.0); BILIRUBIN,TOTAL 0.4 mg/dL (0.2-1.0); CALCIUM, SERUM 8.4 mg/dL (8.5-10.1); CREATININE 0.5 mg/dL (0.6-1.3); POTASSIUM 3.4 mmol/L (3.5-5.1); TOTAL PROTEIN, SERUM 5.1 g/dL (6.4-8.2)
--- NOTE | 2022-06-08 07:00 | NUR ---
CURVE SAW OPERATOR CLOSING NOTES - PATIENT SLEEPING INTERMITTENTLY. ABLE TO VERBALIZE NEEDS. NO SOB OR NOTED BUT C/O PAIN WHEN COUGHING OR INHALING, RT NOTIFIED. NOT IN APPARENT DISTRESS. AFEBRILE. ON TELE MONITOR READING SINUS RHYTHM AT 85 BPM. LEFT HAND IV ACCESS AND LEFT UPPER ARM MIDLINE INTACT, PATENT AND FLUSHING. ALL DUE MEDS GIVEN AND NEEDS ATTENDED. SAFETY PRECAUTIONS MAINTAINED. WILL ENDORSE TO NEXT SHIFT FOR JOSEPH.
[2022-06-08] MEDS: ALBUTEROL FS 2.5 MG/0.5 ML VIAL.NEB NEB PRN ×2 (07:28→15:12)
--- NOTE | 2022-06-08 07:30 | NUR ---
SECURITY SOLUTIONS ARCHITECT AM NOTES: PATIENT IN BED AWAKE, ALERT, ON 3L O2 NASAL CANULA, O2 SAT 96%, DENIES , RESPIRATION UNLABORED. SR HR 94 ON MONITOR. DENIES PAIN/DISCOMFORT. WITH NS AT 75 ML/HR INFSING ON DONAVAN MIDLINE, WITH LEFT HAND 20G IV ACCESS. FLUSHES WELL, BOTH SITES CLEAR. NO BLEEDING AT THIS TIME. DISCUSSED POC, VERBALIZED UNDERSTANDING. SKIN INTACT. USES COMMODE. REGULAR DIET. SAFETY MEASURE IN PLACE. BED LOW LOCKED. CALL LIGHT WITH IN REACH. WILL CONT TO MONITOR
[2022-06-08] MEDS: MEGESTROL ACETATE 40 MG TABLET PO SCH (08:46)
[2022-06-08] MEDS: FERROUS SULFATE (325 MG) 325 MG/TAB TABLET PO SCH ×3 (08:46→16:50)
[2022-06-08] MEDS: MIDODRINE HCL (5MG) 5 MG TABLET PO PRN (08:47)
--- NOTE | 2022-06-08 09:30 | NUR ---
RN NOTES DUE MEDS GIVEN
--- NOTE | 2022-06-08 10:45 | NUR ---
RN NOTES DR. KENNY PINA ORDERED FOR CT SCAN OF CHEST AND ABDOMEN WITH CONTRAST FOR CANCER STAGING. CONSENT SIGNED. RADIOLOGY INFORMED.
[2022-06-08] MEDS ORDERED: POTASSIUM CHLORIDE 20 MEQ TAB.PRT.SR PO ONE (11:00)
[2022-06-08 12:42] LABS: HEMOGLOBIN 9.4 g/dL (11.5-14.8)
[2022-06-08] MEDS ORDERED: IOHEXOL-300 100 ML VIAL IV ONE (14:50)
[2022-06-08] MEDS ORDERED: IV NS 0.9% 250 ML IV ONE (14:50)
[2022-06-08] MEDS ORDERED: CT SWABBABLE VALVE TRANS SET 1 EA INFUS.SET MC ONE (14:52)
[2022-06-08] MEDS: DOCUSATE SODIUM 100 MG CAPSULE PO SCH (17:14)
[2022-06-08] MEDS: POLYETHYLENE GLYCOL 3350 17 GM POWD.PACK PO SCH (17:14)
[2022-06-08] MEDS ORDERED: GADOTERATE MEGLUMINE 10 MMOL/20 ML VIAL IV ONE (17:17)
--- NOTE | 2022-06-08 18:40 | NUR ---
NEGATIVE TURNER CLOSING NOTES: PATIENT IN BED AWAKE, RESTING, ALERT, SON AT BEDSIDE. ON 3L O2 NASAL CANULA, O2 SAT 99%, DENIES SOB, RESPIRATION UNLABORED. SR HR 95 ON MONITOR. DENIES PAIN/DISCOMFORT. WITH NS AT 75 ML/HR INFUSING ON DONAVAN MIDLINE, WITH LEFT HAND 20G IV ACCESS. FLUSHES WELL, BOTH SITES CLEAR. NO BLEEDING AT THIS TIME. SKIN INTACT. USES COMMODE. REGULAR DIET. SAFETY MEASURE IN PLACE. BED LOW LOCKED. CALL LIGHT WITH IN REACH. ALL NEEDS MET AT THIS TIME. NO OTHER SIGNIFICANT CHANGE IN CONDITION. WILL ENDORSE TO NEXT SHIFT FOR JOSEPH
--- NOTE | 2022-06-08 20:21 | NUR ---
SERVICE CENTER MANAGER OPENING NOTES: PATIENT IN BED AWAKE, RESTING, ALERT, SON AT BEDSIDE. ON 3L O2 NASAL CANULA, O2 SAT 99%, DENIES SOB, RESPIRATION UNLABORED. SR ON MONITOR. DENIES PAIN/DISCOMFORT. WITH NS AT 75 ML/HR INFUSING ON DONAVAN MIDLINE, WITH LEFT HAND 20G IV ACCESS. FLUSHES WELL, BOTH SITES CLEAR. NO BLEEDING AT THIS TIME. SKIN INTACT. USES COMMODE. REGULAR DIET. SAFETY MEASURE IN PLACE. BED LOW LOCKED. CALL LIGHT WITH IN REACH. ALL NEEDS MET AT THIS TIME.
[2022-06-08 23:12] LABS: HEMOGLOBIN 9.3 g/dL (11.5-14.8)
[2022-06-09 00:49] VITALS: BP 95/63
[2022-06-09 04:02] LABS: HEMOGLOBIN 8.4 g/dL (11.5-14.8)
[2022-06-09] MEDS: MORPHINE SULFATE INJ 2 MG/ML DISP.SYRIN IV PRN (04:57)
[2022-06-09 06:13] LABS: BASOPHILS % (AUTO) 0.2 % (0.0-2.0); EOSINOPHILS % (AUTO) 1.1 % (0.0-6.0); HEMATOCRIT 25 % (33-45); HEMOGLOBIN 8.1 g/dL (11.5-14.8); LYMPHOCYTES % (AUTO) 9.2 % (20.0-44.0); MEAN CORPUSCULAR HGB CONC 33 g/dl (31.0-36.0); MEAN CORPUSCULAR VOLUME 80 fL (82-100); MONOCYTES # (AUTO) 1.1 K/uL (0.1-1.30); MONOCYTES % (AUTO) 9.9 % (2.0-12.0); NEUTROPHILS # (AUTO) 8.6 K/uL (1.8-8.9); NEUTROPHILS % (AUTO) 79.6 % (43.0-81.0); PLATELET COUNT (AUTO) 249 K/uL (150-450); WHITE BLOOD COUNT (AUTO) 10.8 K/uL (4.3-11.0)
[2022-06-09] MEDS: IV NS 0.9% 1,000 ML IV SCH ×2 (06:21→10:49)
[2022-06-09] MEDS: ZOSYN IVPB 3.375 G in IV D5W 50ml IV SCH ×4 (06:21→23:52)
[2022-06-09 06:31] LABS: ALBUMIN 1.6 g/dL (3.4-5.0); BILIRUBIN,TOTAL 0.4 mg/dL (0.2-1.0); CALCIUM, SERUM 8.4 mg/dL (8.5-10.1); CREATININE 0.5 mg/dL (0.6-1.3); POTASSIUM 3.3 mmol/L (3.5-5.1); TOTAL PROTEIN, SERUM 5.3 g/dL (6.4-8.2)
[2022-06-09 07:09] VITALS: BP 94/54
--- NOTE | 2022-06-09 07:15 | NUR ---
RN Note Received handover from ANGELICA Matt. Patient is resting in bed without active complaint. Circulation is good with restraints use. Left upperarm ML is dry, intact and patent, with NS running at 75mL/hr.Telemetry showed SR HR 77/min. Bed is locked and placed in the lowest position. All safety measures have been implemented. Will continue monitoring and care.
[2022-06-09 08:00] VITALS: BP 110/68
[2022-06-09] MEDS: FERROUS SULFATE (325 MG) 325 MG/TAB TABLET PO SCH ×3 (09:05→17:28)
[2022-06-09] MEDS: POLYETHYLENE GLYCOL 3350 17 GM POWD.PACK PO SCH (09:05)
[2022-06-09] MEDS: DOCUSATE SODIUM 100 MG CAPSULE PO SCH ×2 (09:05→17:28)
[2022-06-09] MEDS: MEGESTROL ACETATE 40 MG TABLET PO SCH (09:06)
[2022-06-09] MEDS ORDERED: POTASSIUM CHLORIDE 20 MEQ TAB.PRT.SR PO SCH (10:00)
[2022-06-09 12:00] VITALS: BP 110/75
[2022-06-09 16:00] VITALS: BP 99/63
--- NOTE | 2022-06-09 19:50 | NUR ---
WINDOWS SYSTEMS ENGINEER OPENING NOTE RECEIVED PATIENT IN BED AWAKE, RESTING, WITH FAMILY AT BED SIDE. PT A/O X4, ABLE TO MAKE NEEDS KNOWN, NIUEAN SPEAKING. ON 3L O2 NASAL CANULA, O2 SAT 99%. NO SOB, NO RESPIRATORY DISTRESS NOTED. PT ON TELE MONITOR READING SR. DENIES PAIN/DISCOMFORT AT THIS TIME. HAS LEFT UA MIDLINE RUNNING NS AT 75 ML/HR, INFUSING WELL. ALSO IV ACCESS TO LEFT HAND 20G, FLUSHES WELL. NO BLEEDING AT THIS TIME. SKIN INTACT. SAFETY MEASURE IN PLACE. BED LOCKED IN LOW POSITION, CALL LIGHT WITHIN REACH, SR UP X2. WILL CONTINUE TO MONITOR PT.
[2022-06-09 20:00] VITALS: BP 105/61
[2022-06-09 21:41] LABS: HEMOGLOBIN 6.3 g/dL (11.5-14.8)
--- NOTE | 2022-06-09 22:30 | NUR ---
RN NOTE LAB CALLED TO REPORT PT'S CRITICAL LAB VALUES, PT'S HGB: 6.3, HCT: 20. MD CHAVEZ IS CALLED AND MADE AWARE. AWAITING FOR TO CALLED BACK.
--- NOTE | 2022-06-09 23:00 | NUR ---
RN NOTE CALLED BACK. ORDER RECEIVED TO ADMINISTER PT 1 UNIT OF PRBC. ORDER ENTERED, AND LAB CALLED. AWAITING FOR LAB TO PREPARE BLOOD.
[2022-06-10] VITALS (20 sets, daily range): BP systolic 93–125; BP diastolic 54–85
--- NOTE | 2022-06-10 03:00 | NUR ---
RN NOTE BLOOD TRANSFUSION STARTED AT 0300. VS STABLE, BP: 97/62, P: 103, O2: 98%, R: 18, T: 98.4. PT AFEBRILE. WILL CONTINUE TO MONITOR.
--- NOTE | 2022-06-10 03:15 | NUR ---
RN NOTE PT GETTING BLOOD TRANSFUSION. VS STABLE, BP: 101/58, P: 95, O2: 99%, R: 16, T: 98.5. NO FEVER , NO RESPIRATORY DISTRESS NOTED. NO ADVERSE REACTIONS OBSERVED.
--- NOTE | 2022-06-10 03:30 | NUR ---
RN NOTE PT IS STILL RECEIVING BLOOD TRANSFUSION. VS WNL, NO FEVER, NO ADVERSE REACTIONS NOTED.
--- NOTE | 2022-06-10 04:00 | NUR ---
RN NOTE PT IS STILL RECEIVING BLOOD TRANSFUSION. VS WNL, NO FEVER, NO ADVERSE REACTIONS NOTED.
--- NOTE | 2022-06-10 05:00 | NUR ---
RN NOTE PT IS STILL RECEIVING BLOOD TRANSFUSION. VS WNL, NO FEVER, NO ADVERSE REACTIONS NOTED.
[2022-06-10] MEDS: ZOSYN IVPB 3.375 G in IV D5W 50ml IV SCH ×4 (06:14→23:54)
--- NOTE | 2022-06-10 06:35 | NUR ---
RN NOTE BLOOD TRANSFUSION ENDED. VS TAKEN AND RECORDED, BP: 100/58, P: 95, O2: 100%, R: 18, T: 98.3. PT ABLE TO TOLERATE BLOOD TRANSFUSION WELL. NO ALLERGIC REACTIONS OBSERVED, NO SOB, NO RESPIRATORY DISTRESS NOTED. PT LEFT AWAKE, RESTING IN BED. SAFETY MEASURES IMPLEMENTED. WILL ENDORSE TO AM SHIFT NURSE FOR JOSEPH.
[2022-06-10 06:54] LABS: BASOPHILS % (AUTO) 0.4 % (0.0-2.0); EOSINOPHILS % (AUTO) 1.2 % (0.0-6.0); LYMPHOCYTES # (AUTO) 1.2 K/uL (0.8-4.8); LYMPHOCYTES % (AUTO) 13.4 % (20.0-44.0); MEAN CORPUSCULAR HGB CONC 32 g/dl (31.0-36.0); MEAN CORPUSCULAR VOLUME 81 fL (82-100); MONOCYTES # (AUTO) 0.9 K/uL (0.1-1.30); MONOCYTES % (AUTO) 9.8 % (2.0-12.0); NEUTROPHILS # (AUTO) 6.9 K/uL (1.8-8.9); NEUTROPHILS % (AUTO) 75.2 % (43.0-81.0); PLATELET COUNT (AUTO) 229 K/uL (150-450); RED BLOOD CELL COUNT(AUTO) 2.33 MIL/uL (4.0-5.2); WHITE BLOOD COUNT (AUTO) 9.2 K/uL (4.3-11.0)
[2022-06-10 07:07] LABS: HEMATOCRIT 19 % (33-45); HEMOGLOBIN 6.1 g/dL (11.5-14.8)
[2022-06-10 07:11] LABS: CALCIUM, SERUM 7.9 mg/dL (8.5-10.1); CREATININE 0.5 mg/dL (0.6-1.3); POTASSIUM 3.3 mmol/L (3.5-5.1)
--- NOTE | 2022-06-10 07:37 | NUR ---
FOUNDER AND CHIEF TECHNICAL OFFICER OPENING NOTE RECEIVED PATIENT IN BED AWAKE, RESTING, PT A/O X4, ABLE TO MAKE NEEDS KNOWN, [place] SPEAKING. ON 3L O2 NASAL CANULA, O2 SAT 99%. NO SOB, NO RESPIRATORY DISTRESS NOTED. PT ON TELE MONITOR READING SR. DENIES PAIN/DISCOMFORT AT THIS TIME. HAS LEFT UA MIDLINE RUNNING NS AT 75 ML/HR, INFUSING WELL. ALSO IV ACCESS TO LEFT HAND 20G, FLUSHES WELL. NO BLEEDING AT THIS TIME. SKIN INTACT. SAFETY MEASURE IN PLACE. BED LOCKED IN LOW POSITION, CALL LIGHT WITHIN REACH, SR UP X2. WILL CONTINUE TO MONITOR PT.
[2022-06-10] MEDS: POLYETHYLENE GLYCOL 3350 17 GM POWD.PACK PO SCH (08:06)
[2022-06-10] MEDS: DOCUSATE SODIUM 100 MG CAPSULE PO SCH ×2 (08:06→16:08)
[2022-06-10] MEDS: MEGESTROL ACETATE 40 MG TABLET PO SCH (08:06)
[2022-06-10] MEDS: FERROUS SULFATE (325 MG) 325 MG/TAB TABLET PO SCH ×3 (08:06→16:08)
[2022-06-10 08:08] LABS: BILIRUBIN,TOTAL 0.3 mg/dL (0.2-1.0); TOTAL PROTEIN, SERUM 4.5 g/dL (6.4-8.2)
[2022-06-10 08:14] LABS: ALBUMIN 1.4 g/dL (3.4-5.0)
--- NOTE | 2022-06-10 08:19 | NUR ---
LAB CALLED IN STATED THAT HGB 6.0 AND HCT 18.5 ALBUMIN IS 1.4 NOTIFIED TO AND WILL GIVE 1 UNITS PRBC TODAY
[2022-06-10] MEDS: ACETAMINOPHEN 325 MG TABLET PO PRN (09:46)
[2022-06-10] MEDS ORDERED: POTASSIUM CHLORIDE 20 MEQ TAB.PRT.SR PO SCH (10:30)
[2022-06-10] MEDS ORDERED: ALBUTEROL FS 2.5 MG/0.5 ML VIAL.NEB NEB PRN (11:30)
[2022-06-10] MEDS: GUAIFENESIN LA 600 MG TABLET.SA PO SCH ×2 (11:53→21:04)
[2022-06-10] MEDS ORDERED: FENTANYL PF 250MCG/5ML AMPUL IV PRN ×2 (13:30→14:00)
[2022-06-10] MEDS ORDERED: FLUMAZENIL 0.5 MG VIAL IV PRN ×2 (13:30→14:00)
[2022-06-10] MEDS ORDERED: MIDAZOLAM HCL 2 MG/2ML VIAL IV PRN ×2 (13:30→14:00)
[2022-06-10] MEDS ORDERED: NALOXONE PREFILLED SYRINGE 2 MG/2 ML SYRINGE IV PRN ×2 (13:30→14:00)
[2022-06-10] MEDS ORDERED: LIDOCAINE HCL/PF 1% 30 ML SDV ONE (14:16)
[2022-06-10] MEDS: IV NS 0.9% 1,000 ML IV PRN (17:54)
--- NOTE | 2022-06-10 18:45 | NUR ---
TRIAGE RN CLOSING NOTES: PATIENT IN BED AWAKE, RESTING, ALERT, SON AT BEDSIDE. ON 3L O2 VIA NC , O2 SAT 99%, DENIES SOB, RESPIRATION UNLABORED. SR HR 86 ON MONITOR. DENIES PAIN/DISCOMFORT. NS INFUSING AT 75 ML/HR VIA DONAVAN MIDLINE, WITH LEFT HAND 20G IV ACCESS. FLUSHES WELL, BOTH SITES CLEAR. NO BLEEDING AT THIS TIME. SKIN INTACT. PATIENT CAN USE USES COMMODE WITH ASSISTANCE . AFTER THE BIOPSY OF THE RIGHT LUNG WAS DONE PLACED BACK TO THE REGULAR DIET. SAFETY MEASURE IN PLACE. BED IS AT LOWEST LOCKED. CALL LIGHT WITH IN REACH. ALL NEEDS MET , ALL MEDICATIONS ADMINISTERED . WILL ENDORSE DIESEL POWERPLANT SUPERVISOR NURSE FOR JOSEPH
--- NOTE | 2022-06-10 19:30 | NUR ---
LACING PRESSER OPENING NOTE RECEIVED PATIENT IN BED AWAKE, RESTING, PT A/O X4, ENGLISH SPEAKING, ABLE TO MAKE NEEDS KNOWN, ON 3L O2 VIA NASAL CANULA, O2 SAT 99%. NO SOB, NO RESPIRATORY DISTRESS NOTED. PT ON TELE MONITOR READING SR. DENIES PAIN/DISCOMFORT AT THIS TIME. HAS LEFT UA MIDLINE RUNNING NS AT 75 ML/HR, INFUSING WELL. NO ACTIVE BLEEDING AT THIS TIME. SKIN INTACT. SAFETY MEASURE IN PLACE. BED LOCKED IN LOW POSITION, CALL LIGHT WITHIN REACH, SR UP X2. WILL CONTINUE TO MONITOR THROUGHOUT THE SHIFT.
[2022-06-10 20:47] LABS: HEMOGLOBIN 7.3 g/dL (11.5-14.8)
--- NOTE | 2022-06-10 21:30 | NUR ---
RN NOTE CURRENT H&H AT 7.06/20. ANESTHESIOLOGY PHYSICIAN ASSISTANT MD NOTIFIED, PER MD NO TRANSFUSION AT THIS TIME AND MONITOR H&H IN AM. WILL CONT TO MONITOR PT.
[2022-06-10] MEDS: MIDODRINE HCL (5MG) 5 MG TABLET PO PRN (23:53)
[2022-06-11] VITALS: BP 96/56
[2022-06-11] MEDS: IV NS 0.9% 1,000 ML IV PRN ×2 (01:24→15:24)
[2022-06-11 04:00] VITALS: BP 87/46
[2022-06-11] MEDS: ZOSYN IVPB 3.375 G in IV D5W 50ml IV SCH ×3 (05:06→17:11)
[2022-06-11] MEDS: MIDODRINE HCL (5MG) 5 MG TABLET PO PRN (05:14)
[2022-06-11] MEDS: MORPHINE SULFATE INJ 2 MG/ML DISP.SYRIN IV PRN (05:21)
--- NOTE | 2022-06-11 05:21 | NUR ---
RN NOTE PT COMPLAINTS OF PAIN ON THE ANTERIOR CHEST, MORPHINE GIVEN ORDERED. WILL CONT TO MONITOR.
--- NOTE | 2022-06-11 05:30 | NUR ---
RN NOTE PT BP NOTED AT 87/54 AN HR AFTER MIDODRINE 10 MG PO GIVEN, FACILITY MECHANIC MD MADE AWARE, NNO ORDER AT THIS TIME BUT MONITOR AM H&H. ORDER TAKEN AND CARRIED OUT.
--- NOTE | 2022-06-11 06:47 | NUR ---
TELEPHONE STERILIZER CLOSING NOTE PATIENT REMAINS IN BED RESTING, PT A/O X4, ABLE TO MAKE NEEDS KNOWN, ON 3L O2 VIA NASAL CANULA, O2 SAT 99%. NO SOB, NO RESPIRATORY DISTRESS NOTED. PT ON TELE MONITOR READING SR. DENIES PAIN/DISCOMFORT AT THIS TIME. HAS LEFT UA MIDLINE RUNNING NS AT 75 ML/HR, INFUSING WELL. NO ACTIVE BLEEDING AT THIS TIME. SKIN INTACT. ALL DUE MEDS GIVEN, KEPT DRY AND CLEAN, SAFETY MEASURE IN PLACE. BED LOCKED IN LOW POSITION, CALL LIGHT WITHIN REACH, SR UP X2. WILL ENDORSE TO AM SHIFT NURSE FOR CONTINUITY OF CARE.
[2022-06-11 06:52] LABS: BASOPHILS % (AUTO) 0.2 % (0.0-2.0); EOSINOPHILS % (AUTO) 1.4 % (0.0-6.0); HEMATOCRIT 22 % (33-45); HEMOGLOBIN 7.1 g/dL (11.5-14.8); LYMPHOCYTES # (AUTO) 1.2 K/uL (0.8-4.8); LYMPHOCYTES % (AUTO) 11.1 % (20.0-44.0); MEAN CORPUSCULAR HGB CONC 33 g/dl (31.0-36.0); MEAN CORPUSCULAR VOLUME 83 fL (82-100); MONOCYTES % (AUTO) 9.6 % (2.0-12.0); NEUTROPHILS # (AUTO) 8.3 K/uL (1.8-8.9); NEUTROPHILS % (AUTO) 77.7 % (43.0-81.0); PLATELET COUNT (AUTO) 257 K/uL (150-450); RED BLOOD CELL COUNT(AUTO) 2.63 MIL/uL (4.0-5.2); WHITE BLOOD COUNT (AUTO) 10.6 K/uL (4.3-11.0)
[2022-06-11 07:12] LABS: CALCIUM, SERUM 8.1 mg/dL (8.5-10.1); CREATININE 0.5 mg/dL (0.6-1.3); PHOSPHORUS 3.1 mg/dL (2.5-4.9); POTASSIUM 3.4 mmol/L (3.5-5.1)
--- NOTE | 2022-06-11 07:30 | NUR ---
WELDER GAS TUNGSTEN ARC OPEN NOTE: ALERT AND ORIENTED TIMES FOUR. ON 02 3LPM NC SATING AT 97 %. MOIST ORAL MUCOSA. FAIR SKIN TURGOR. CHIEF SCIENTIST WITH SINUS RHYTHM 93. MIDLINE ON LEFT UPPER ARM WITH IVF NS 75 ML/HR. DENIES PAIN OR DISCOMFORT. ABLE TO USE BED SIDE COMMODE. KEPT CLEAN AND COMFORTABLE. HOB ELEVATED. BILATERAL HALF SIDE RAILS UP X2. BED IS LOCKED, IN LOW POSITION, EXIT ALARM ON. CALL LIGHT IN REACH.
[2022-06-11 08:00] VITALS: BP 97/56
[2022-06-11] MEDS: MEGESTROL ACETATE 40 MG TABLET PO SCH (08:27)
[2022-06-11] MEDS: FERROUS SULFATE (325 MG) 325 MG/TAB TABLET PO SCH ×2 (08:27→13:08)
[2022-06-11] MEDS: DOCUSATE SODIUM 100 MG CAPSULE PO SCH ×2 (08:27→17:11)
[2022-06-11] MEDS: GUAIFENESIN LA 600 MG TABLET.SA PO SCH ×2 (08:27→21:34)
[2022-06-11] MEDS: POLYETHYLENE GLYCOL 3350 17 GM POWD.PACK PO SCH ×2 (08:27→08:39)
[2022-06-11] MEDS ORDERED: POTASSIUM CHLORIDE 20 MEQ TAB.PRT.SR PO ONE (11:00)
[2022-06-11 12:00] VITALS: BP 103/62
[2022-06-11 16:00] VITALS: BP 101/63
[2022-06-11 17:51] LABS: HEMOGLOBIN 7.6 g/dL (11.5-14.8)
[2022-06-11] MEDS: SOD FERRIC GLUC 125 MG in IV NS 0.9% 100 ML IV SCH (18:21)
--- NOTE | 2022-06-11 18:55 | NUR ---
MEMORIAL COUNSELOR CLOSING NOTE: ALERT AND ORIENTED TIMES THREE. UNLABORED BREATHING WITH 02 2LPM NC. SATING AT 95 %. RN ANTE PARTUM SINUS RHYTHM 90. IV ON LEFT FOREARM PATENT. NO S/S OF COMPLICATIONS. HOB ELEVATED. BILATERAL HALF SIDE RAILS UP X2. BED IS LOCKED, IN LOW POSITION, EXIT ALARM ON. CALL LIGHT IN REACH. DENIES PAIN OR DISCOMFORT. VISITED BY FAMILY.
--- NOTE | 2022-06-11 19:40 | NUR ---
BRASS CUTTER OPENING NOTE RECEIVED PATIENT IN BED WITH FAMILY AT BEDSIDE, AAO X4, O2 VIA NC AT 2L, O2 SAT AT 97%, NO SOB/DISTRESS NOTED. ON TELE MONITOR SR HR 90. IV ACCESS ON LEFT FOREARM, INTACT AND RUNNING NS AT 75 ML/HR. SAFETY MEASURES IN PLACE: BED LOCKED AND IN LOWEST POSITION, CALL LIGHT WITHIN REACH, SIDE RAILS UP X2.
[2022-06-11 20:00] VITALS: BP 110/64
[2022-06-12] VITALS (10 sets, daily range): BP systolic 91–111; BP diastolic 43–67
[2022-06-12] MEDS: ZOSYN IVPB 3.375 G in IV D5W 50ml IV SCH ×5 (00:03→23:16)
[2022-06-12] MEDS: IV NS 0.9% 1,000 ML IV PRN (06:09)
[2022-06-12 07:10] LABS: HEMOGLOBIN 7.9 g/dL (11.5-14.8)
--- NOTE | 2022-06-12 07:15 | NUR ---
UTILIZATION REVIEW NURSE CLOSING NOTE PATIENT IN BED, AWAKE, AAO X4, O2 VIA NC AT 2L, O2 SAT AT 97%, NO SOB/DISTRESS NOTED. ON TELE MONITOR SR HR 86. IV ACCESS ON LEFT UPPER ARM MIDLINE, INTACT AND RUNNING NS AT 75 ML/HR. SAFETY MEASURES MAINTAINED: BED LOCKED AND IN LOWEST POSITION, CALL LIGHT WITHIN REACH, SIDE RAILS UP X2. WILL ENDORSE TO ONCOMING NURSE FOR JOSEPH.
--- NOTE | 2022-06-12 07:27 | NUR ---
RN OBGYN OPENING NOTE RECEIVED PATIENT IN BED. ALERT AND ORIENTED X4, [place] SPEAKING. O2 VIA NC AT 2L, O2 SAT AT 97%, NO SOB/DISTRESS NOTED. ON TELE MONITOR SR. IV ACCESS ON LEFT UPPER ARM MIDLINE. IV INTACT, PATENT AND FLUSHING WELL. ALL SAFETY MEASURES IN PLACE: BED LOCKED AND IN LOWEST POSITION, CALL LIGHT WITHIN REACH, SIDE RAILS UP X2.BED ALARM ON.BEDSIDE TABLE NEXT TO PT
[2022-06-12] MEDS: POLYETHYLENE GLYCOL 3350 17 GM POWD.PACK PO SCH (09:00)
[2022-06-12] MEDS: DOCUSATE SODIUM 100 MG CAPSULE PO SCH ×2 (09:11→16:05)
[2022-06-12] MEDS: GUAIFENESIN LA 600 MG TABLET.SA PO SCH ×2 (09:11→21:55)
[2022-06-12] MEDS: MEGESTROL ACETATE 40 MG TABLET PO SCH (09:11)
[2022-06-12] MEDS: ENSURE CLEAR 237 ML LIQUID (MIX BERRY) PO SCH ×2 (09:11→17:14)
--- NOTE | 2022-06-12 12:25 | NUR ---
blood transfusion started.
--- NOTE | 2022-06-12 12:30 | NUR ---
rn note notiifed sidney dale that hgb 7.9 and still bleeding and if okay to transfuse 1 unit PRBC. sidney dale said to transfuse 1 unit.order noted and carried out
--- NOTE | 2022-06-12 13:31 | NUR ---
increased to 110 ml/hr. no adverse reaction noted at this time
--- NOTE | 2022-06-12 15:13 | NUR ---
rn note blood transfusion complete. pt tolerated well. no adverse reaction noted at this time
[2022-06-12] MEDS: SOD FERRIC GLUC 125 MG in IV NS 0.9% 100 ML IV SCH (17:13)
[2022-06-12 17:15] LABS: HEMOGLOBIN 7.5 g/dL (11.5-14.8)
--- NOTE | 2022-06-12 19:00 | NUR ---
RN NOTE NOTIIFIED [facility] HEMATOLOGY WEB PAGE DEVELOPER THAT HGB WENT DOWN TO 7.5 AFTER BLOOD TRANSFUSION AND IF ANOTHER UNIT OF PRBC AND WENT THROUGH 8 PADS THROUGHOUT SHIFT. WEB PAGE DEVELOPER SAID IF SHE IS STILL HAVING ACTIVE BLEEDING THEN TRANSFUSE IF HGB < 8
--- NOTE | 2022-06-12 19:50 | NUR ---
LAYOUT TECHNICIAN OPENING NOTE RECEIVED PATIENT IN BED, AWAKE. PT ALERT AND ORIENTED X4, URDU SPEAKING. ON O2 VIA NC AT 2LPM, O2 SAT AT 98%, NO SOB/DISTRESS NOTED. ON TELE MONITOR SR. IV ACCESS ON LEFT UPPER ARM MIDLINE. IV INTACT, PATENT AND FLUSHING WELL. ALL SAFETY MEASURES IN PLACE: BED LOCKED AND IN LOWEST POSITION, CALL LIGHT WITHIN REACH, SIDE RAILS UP X2. BED ALARM ON. WILL CONTINUE TO MONITOR PT.
--- NOTE | 2022-06-12 19:56 | NUR ---
ENGINEERING CONSULTANT CLOSING NOTE PATIENT IN BED. ALERT AND ORIENTED X4, LAO SPEAKING. O2 VIA NC AT 2L, O2 SAT AT 97%, NO SOB/DISTRESS NOTED. ON TELE MONITOR SR. IV ACCESS ON LEFT UPPER ARM MIDLINE. IV INTACT, PATENT AND FLUSHING WELL. ALL SAFETY MEASURES IN PLACE: BED LOCKED AND IN LOWEST POSITION, CALL LIGHT WITHIN REACH, SIDE RAILS UP X2.BED ALARM ON.BEDSIDE TABLE NEXT TO PT.ENDORSED TO SPA MANAGER RN FOR CONUTITY OF CARE
[2022-06-13] VITALS (15 sets, daily range): BP systolic 91–117; BP diastolic 56–70
--- NOTE | 2022-06-13 01:08 | NUR ---
STACKER STRAIGHTENER NOTE STARTED BLOOD TRANSFUSION. VITAL SIGNS WNL, T: 98.5, BP: 96/56, HR: 103, R: 22, O2: 98%. PT AFEBRILE, NO ADVERSE REACTIONS OBSERVED. WILL CONTINUE TO MONITOR.
--- NOTE | 2022-06-13 01:23 | NUR ---
STROBOSCOPE OPERATOR NOTE BLOOD TRANSFUSION IS STILL INFUSING. VITAL SIGNS WNL. PT AFEBRILE, NO ADVERSE REACTIONS OBSERVED. WILL CONTINUE TO MONITOR.
--- NOTE | 2022-06-13 04:55 | NUR ---
COOKER MEAL NOTE BLOOD TRANSFUSION ENDS. VITAL SIGNS WNL. PT STILL AFEBRILE, NO ADVERSE REACTIONS NOTED. PT TOLERATED BLOOD TRANSFUSION WELL.
[2022-06-13 06:31] LABS: BASOPHILS % (AUTO) 0.4 % (0.0-2.0); EOSINOPHILS % (AUTO) 2.5 % (0.0-6.0); HEMATOCRIT 23 % (33-45); HEMOGLOBIN 7.6 g/dL (11.5-14.8); LYMPHOCYTES # (AUTO) 1.2 K/uL (0.8-4.8); LYMPHOCYTES % (AUTO) 12.4 % (20.0-44.0); MEAN CORPUSCULAR HGB CONC 33 g/dl (31.0-36.0); MEAN CORPUSCULAR VOLUME 87 fL (82-100); MONOCYTES # (AUTO) 0.9 K/uL (0.1-1.30); MONOCYTES % (AUTO) 9.5 % (2.0-12.0); NEUTROPHILS # (AUTO) 7.4 K/uL (1.8-8.9); NEUTROPHILS % (AUTO) 75.2 % (43.0-81.0); PLATELET COUNT (AUTO) 271 K/uL (150-450); RED BLOOD CELL COUNT(AUTO) 2.67 MIL/uL (4.0-5.2); WHITE BLOOD COUNT (AUTO) 9.9 K/uL (4.3-11.0)
[2022-06-13] MEDS: ZOSYN IVPB 3.375 G in IV D5W 50ml IV SCH ×2 (06:36→11:46)
[2022-06-13 06:52] LABS: CALCIUM, SERUM 8.3 mg/dL (8.5-10.1); CREATININE 0.5 mg/dL (0.6-1.3); MAGNESIUM 2.2 mg/dL (1.8-2.4); PHOSPHORUS 3.3 mg/dL (2.5-4.9); POTASSIUM 3.6 mmol/L (3.5-5.1)
--- NOTE | 2022-06-13 07:41 | NUR ---
CHANGE AGENT CLOSING NOTE LEFT PATIENT IN BED, AWAKE. PT ALERT AND ORIENTED X4, SERBIAN SPEAKING. ON O2 VIA NC AT 2LPM, O2 SAT AT 98%, NO SOB/DISTRESS NOTED. ON TELE MONITOR SR. IV ACCESS ON LEFT UPPER ARM MIDLINE. IV INTACT, PATENT AND FLUSHING WELL. ALL SAFETY MEASURES IN PLACE: BED LOCKED AND IN LOWEST POSITION, CALL LIGHT WITHIN REACH, SIDE RAILS UP X2. BED ALARM ON. WILL ENDORSE PT TO MORNING SHIFT NURSE FOR JOSEPH.
[2022-06-13] MEDS: ENSURE CLEAR 237 ML LIQUID (MIX BERRY) PO SCH (07:54)
[2022-06-13 08:19] LABS: BASOPHILS % (MANUAL) 0 % (0.0-2.0); EOSINOPHILS % (MANUAL) 0 % (0-4); LYMPHOCYTES % (MANUAL) 12 % (16-48); MONOCYTES % (MANUAL) 9 % (0-11.0); NEUTROPHILS % (MANUAL) 79 (42-76)
--- NOTE | 2022-06-13 08:30 | NUR ---
RN NOTE NOTIFIED LILIYA TRAN NP, OF PATIENT'S HGB LEVEL OF 7.6. PATIENT HAS ACTIVE VAGINAL BLEEDING. ORDERS PER DR JULIAN ZAVALETA TO TRANSFUSE 1PRBS IF HGB IS <8. AWARE.
[2022-06-13] MEDS: DOCUSATE SODIUM 100 MG CAPSULE PO SCH (09:38)
[2022-06-13] MEDS: MEGESTROL ACETATE 40 MG TABLET PO SCH (09:38)
[2022-06-13] MEDS: GUAIFENESIN LA 600 MG TABLET.SA PO SCH (09:38)
[2022-06-13] MEDS: POLYETHYLENE GLYCOL 3350 17 GM POWD.PACK PO SCH (09:38)
[2022-06-13] MEDS: IV NS 0.9% 1,000 ML IV PRN (11:46)
[2022-06-13] MEDS: SOD FERRIC GLUC 125 MG in IV NS 0.9% 100 ML IV SCH (14:00)
--- NOTE | 2022-06-13 16:01 | NUR ---
RN NOTE PATIENT SIGNED AMA FORM, EDUCATED ON ADVERSE EVENTS BY LILIYA TRAN, AND AGREED TO LEAVE. PICKED UP PATIENT, JILLIAN CHIANG ESCORTED PATIENT VIA WHEELCHAIR TO LOBBY. IV ACCESS REMOVED, ID BAND REMOVED, AND TELEBOX REMOVED. CHARGE NURSE AWARE.
== END 2022-06-13 17:52 | disposition left against medical advice (07) | DRG 530 ==
LOC: ER 08:36 → TRANSITION 09:34 → TELE1 10:30
PROVIDERS: ADMIT Internal Medicine; ATTEND Nurse Practitioner Acute Care
PROC: 30233N1 Transfusion of Nonautologous Red Blood Cells into Peripheral Vein, Percutaneous Approach (ICD-10-PCS; principal; 2022-06-05)
PROC: 05HF33Z Insertion of Infusion Device into Left Cephalic Vein, Percutaneous Approach (ICD-10-PCS; 2022-06-06)
PROC: 0BBF3ZX Excision of Right Lower Lung Lobe, Percutaneous Approach, Diagnostic (ICD-10-PCS; 2022-06-10)
DX: C55 Malignant neoplasm of uterus, part unspecified (principal); N17.0 Acute kidney failure with tubular necrosis; C78.01 Secondary malignant neoplasm of right lung; D62 Acute posthemorrhagic anemia; D63.8 Anemia in other chronic diseases classified elsewhere; E88.09 Other disorders of plasma-protein metabolism, not elsewhere classified; E87.21 Acute metabolic acidosis; E87.1 Hypo-osmolality and hyponatremia; D25.9 Leiomyoma of uterus, unspecified; Z20.822 Contact with and (suspected) exposure to COVID-19; Z90.49 Acquired absence of other specified parts of digestive tract; Z85.42 Personal history of malignant neoplasm of other parts of uterus; Z79.899 Other long term (current) drug therapy; K64.9 Unspecified hemorrhoids; D50.9 Iron deficiency anemia, unspecified; D75.839 Thrombocytosis, unspecified; E87.20 Acidosis, unspecified; E11.65 Type 2 diabetes mellitus with hyperglycemia; E87.6 Hypokalemia; N13.6 Pyonephrosis; N30.90 Cystitis, unspecified without hematuria
CPT/HCPCS: 36410; 36415; 71045-TC; 71260-TC; 72194-TC; 72197-TC; 76856-TC; 80048-TC; 80053-TC; 80076-TC; 81001; 82378; 82607-TC; 82728-TC; 82784; 82962-TC; 83540-TC; 83735-TC; 84100-TC; 84155; 84165; 84702-TC; 84703-TC; 85025-TC; 85027-TC; 85396; 85610-TC; 85730-TC; 86300; 86304; 86334; 86480; 86592; 86593; 86704; 86803; 86850-TC; 87040-TC; 87081-TC; 87086-TC; 87340; 87806; 94799-TC; A4223; A6253; A6403; A9575; G0378; J0696; J1815; J2060; J2270; J2405; J2543; J2916; J3490; J7030; J7040; J7050; J7060; P9016; Q9967